=== PATIENT | male | born 1995 | race Two or more races ===

== ENCOUNTER 2020-06-11 02:23 | Emergency (ER) | payer BC ==
[~2020-06-11] VITALS: Ht 170.2 cm; Wt 69.5 kg
[2020-06-11 02:36] VITALS: BP 124/81
--- NOTE | 2020-06-11 03:29 | PHYS DOC ---
Past Medical History Past Medical History: No Pertinent History Past Surgical History: No Surgical History Smoking Status: Never Smoker Alcohol Use: Occasionally General Adult EDM: Chief Complaint: EARACHE/EAR PAIN HPI: HPI: Patient is a 25 year old presents for evaluation of swelling and pain in his right ear canal. Patient states discomfort and swelling of the been ongoing for the last 4 days. Patient states he has attempted to pop wound but has been unsuccessful. Patient has been alternating Tylenol and ibuprofen in controlling the pain. On exam patient has a pimple-like/abscess in his ear canal. Review of Systems: Review of Systems: Constitutional: Denies fever or chills. [] Eyes: Denies change in visual acuity. [] HENT: Denies nasal congestion or sore throat. [Positive ear pain] Respiratory: Denies cough or shortness of breath. [] Cardiovascular: Denies chest pain or edema. [] GI: Denies abdominal pain, nausea, vomiting, bloody stools or diarrhea. [] : Denies dysuria. [] Musculoskeletal: Denies back pain or joint pain. [] Integument: Denies rash. [Positive abscess] Neurologic: Denies headache, focal weakness or sensory changes. [] Endocrine: Denies polyuria or polydipsia. [] Lymphatic: Denies swollen glands. [] Psychiatric: Denies depression or anxiety. [] Heart Score: Risk Factors: Risk Factors: DM, Current or recent (<one month) smoker, HTN, HLP, family history of CAD, obesity. Risk Scores: Score 0 - 3: 2.5% MACE over next 6 weeks - Discharge Home Score 4 - 6: 20.3% MACE over next 6 weeks - Admit for Clinical Observation Score 7 - 10: 72.7% MACE over next 6 weeks - Early Invasive Strategies Allergies: Allergies: Allergies Coded Allergies Type Severity Reaction Last Updated Verified No Known Drug Allergies 06/11/20 No Physical Exam: PE: Constitutional: Well developed, well nourished, no acute distress, non-toxic appearance. [] HENT: Normocephalic, atraumatic, bilateral external ears normal, oropharynx moist, no oral exudates, nose normal. [Abscess right ear canal not obstructing the canal] Eyes: PERRLA, EOMI, conjunctiva normal, no discharge. [] Neck: Normal range of motion, no tenderness, supple, no stridor. [] Cardiovascular:Heart rate regular rhythm, no murmur [] Lungs & Thorax: Bilateral breath sounds clear to auscultation [] Abdomen: Bowel sounds normal, soft, no tenderness, no masses, no pulsatile masses. [] Skin: Warm, dry, no erythema, no rash. [] Back: No tenderness, no CVA tenderness. [] Extremities: No tenderness, no cyanosis, no clubbing, ROM intact, no edema. [] Neurologic: Alert and oriented X 3, normal motor function, normal sensory function, no focal deficits noted. [] Psychologic: Affect normal, judgement normal, mood normal. [] Current Patient Data: Vital Signs: Vital Signs Date Time Temp Pulse Resp B/P (MAP) Pulse Ox O2 Delivery O2 Flow Rate FiO2 06/11/20 02:36 97.9 79 18 124/81 (95) 97 Room Air 97.9 EKG: EKG: [] Radiology/Procedures: Radiology/Procedures: [] Course & Med Decision Making: Course & Med Decision Making Pertinent Labs and Imaging studies reviewed. (See chart for details) [] Patient advised to continue Tylenol ibuprofen. Patient advised he can use bacitracin or Neosporin. Patient advised wound will eventually rupture like a pimple Dragon Disclaimer: Vianney Disclaimer: This electronic medical record was generated, in whole or in part, using a voice recognition dictation system. Departure Departure Impression: Primary Impression: Abscess, ear canal Disposition: 01 DC HOME SELF CARE/HOMELESS Condition: STABLE Referrals: NO PCP (PCP) Patient Instructions: COMPA Youngblood DO Jun 11, 2020 03:29
[2020-06-11] MEDS ORDERED: BACI1OIN6 TP (03:32)
== END 2020-06-11 03:45 | disposition home or self-care (01) ==
LOC: ER 02:23
DX: H66.41 Suppurative otitis media, unspecified, right ear (principal); R60.0 Localized edema
CPT/HCPCS: 99282